=== PATIENT | male | born 1965 | race Caucasian/White ===

== ENCOUNTER → 2024-06-08 | Outpatient (CLI) | payer OTHER, SELFPAY | END | disposition home or self-care (01) | LOC: LABSPEC 14:45 | PROVIDERS: PCP Internal Medicine; Referring Provider Surgery; Visit Provider Surgery | DX: Z01.818 Encounter for other preprocedural examination (principal); K40.90 Unilateral inguinal hernia, without obstruction or gangrene, not specified as recurrent | CPT/HCPCS: 87081 ==

== ENCOUNTER 2024-09-27 09:10 | Day surgery (SDC) | payer OTHER, SELFPAY ==
--- NOTE | 2024-09-17 07:17 | EKG12_ITS ---
Test Reason : PRE OP Blood Pressure : */* mmHG Vent. Rate : 70 BPM Atrial Rate : 70 BPM P-R Int : 150 ms QRS Dur : 88 ms QT Int : 384 ms P-R-T Axes : 37 16 57 degrees QTcB Int : 414 ms Normal sinus rhythm Normal ECG Confirmed by IRVIN BRANNON, PERICO ([id number]), assistant editor LLUVIA HENSON ([id number]) on 09/17/2024 2:13:02 PM Referred By: Ton Russell Confirmed By: PERICO BRYAN MD
[2024-09-27] VITALS (9 sets, daily range): BP systolic 119–171; BP diastolic 62–90; PULSE 66–85; RESP 16–18; TEMP 36.4–37; O2SAT 92–97; BMI 31.6
--- NOTE | 2024-09-27 | LIP_PTH ---
PATIENT: AUBREE ESCALANTE III LOC: [facility] [place] U#:[id number] AGE/SX: 59/M ROOM: RE09/27/[address]: Dr. Ton Russell MD : 1965 BED: DIS: 09/27/2024 SPEC #: [id number] RECD: 09/27/24 16:34 STATUS: GIOVANNA TORIBIOHeriberto #: [id number] BEKA: 09/27/24 00:[address]: Ton Russell DEPT: SURGICAL PATHOLOGY RECD BY: Griffin Andres ENTERED: 09/28/24 11:02 SP TYPE: LIPOMA OTHR DR: Dr. Martha Middleton, DO Tissues: Soft tissues, NOS Procedures: Surgery Specimen Level III HEADER OPERATION: Laparoscopic robotic inguinal hernia with mesh PRE-OP DIAGNOSIS: Right inguinal hernia TISSUE SUBMITTED: Right inguinal lipoma of cord MICROSCOPIC DIAGNOSIS Right inguinal lipoma of cord, excision: Mature adipose tissue, consistent with lipoma. 10/01/2024 MICROSCOPIC DESCRIPTION Slides are reviewed. GROSS DESCRIPTION Received in fixative is one container labeled with the patient's name and designated Right inguinal lipoma of cord. The specimen consists of an irregular piece of yellow adipose tissue measuring 3.5 x 2.5 x 0.2cm. The entire specimen is submitted in one cassette. 09/28/2024 TC: 1 CPT:40224
[2024-09-27] MEDS: 0.9% Normal Saline (1000mL) 1,000 ML 15 ML IV (10:18)
--- NOTE | 2024-09-27 10:50 | PRE.ANES_ITS ---
ASA Classification* ASA Classification ASA Classification: 2 Assessment & Plan Anesthesia* Anesthesia Assessment Anesthesia Assessment: Discussed sedation and/or anesthesia options, risks, benefits, and alternatives with patient/parents/legal guardian/POA. Questions invited. The patient/parents/legal guardian/POA seems to understand and agrees to proceed with anesthesia plan. Reviewed the physical assessment, medical history, allergy history and patient home medications list prior to surgery/procedure/anesthetic and documented any changes. Performed airway and anesthesia risk assessments. Anesthesia Type Anesthesia Type: General History Source History Obtained from:: Patient and Chart Anesthesia Focused Assessment* Temperature: 98.4 F Pulse Rate: 66 Blood Pressure: 171/88 Respiratory Rate: 18 Pulse Ox: 97 Oxygen Delivery Method: Room Air Airway Assessment Mouth opens: >3 cm Mallampati Score: II Teeth Condition: Caps/Crowns (Front top 6 incisors have veneers.) Neck Range of motion (ROM): Full ROM Focused Labs Anesthesia Preop lab: CBC WBC 8.4 K/mm3 (4.4-11.0) 07/26/16 08:50 RBC 4.75 M/mm3 (4.6-6.2) 07/26/16 08:50 Hgb 14.9 g/dl (13.0-16.5) 07/26/16 08:50 Hct 44.3 % (40-54) 07/26/16 08:50 Plt Count 149 K/mm3 (150-450) L 07/26/16 08:50 CHEMISTRY Potassium 4.4 mmol/L (3.5-5.1) 01/13/16 10:23 Sodium 142 mmol/L (136-145) 01/13/16 10:23 BUN 15 mg/dL (7-18) 01/13/16 10:23 Creatinine 1.02 mg/dL (0.70-1.30) 01/13/16 10:23 Glucose 84 mg/dL (70-110) 01/13/16 10:23 COAG Pre-Assessment Diagnosis/Proposed Procedure Planned Operative Procedure(s): (R) Lap Robotic Inguinal Hernia w/mesh poss bilateral & umbilical hernia repair Anesthesia History Anesthesia History - medical biller/coder: Anesthesia History - medical biller/coder Hx Hospitalization No 09/13/24 10:04 Any Problems With Anesthesia No 09/13/24 10:04 Cholinesterase deficiency No 09/13/24 10:04 You/Your Family Experience No 09/13/24 10:04 fever (hyperthermia) with Relationship Recent Exposure to Contagious No 09/27/24 10:14 Disease Does patient have nerve No 09/13/24 10:04 stimulator Patient instructed to have device shut off --Does patient have Pacemaker No 09/27/24 10:14 or ICD? When Was Last Pacemaker Check QUESTION #4 FULL TEXT: You/Your Family Experience fever (hyperthermia) with Anesthesia Last Oral Intake Last Oral intake: Last Oral Intake NPO since 21:00 09/27/24 10:14 Meds taken in AM with sips of No 09/27/24 10:14 water? Meds patient instructed to take am of surgery PONV PONV - medical biller/coder: PONV - medical biller/coder Female No 09/13/24 10:04 HX of Motion Sickness No 09/13/24 10:04 HX of N/V After Surgery No 09/13/24 10:04 Non-Smoker Yes 09/13/24 10:04 Duration of Surgery greater Yes 09/13/24 10:04 than 60 minutes Number of Risk Factors 2 09/13/24 10:04 PONV Score Moderate Risk 09/13/24 10:04 Height & Weight Height & Weight: Anesthesia: Height & Weight Height 5 ft 10 in 09/27/24 10:14 Weight: 100.2 kg 09/27/24 10:14 Body Mass Index (BMI) 31.6 09/27/24 10:14 Respiratory Assessment Respiratory Assessment - medical biller/coder: Respiratory Tract Infection Hx - medical biller/coder Hx Respiratory Tract Infection No 09/13/24 10:04 STOP Sleep Apnea STOP Sleep Apnea - medical biller/coder: STOP Sleep Apnea - medical biller/coder Hx Hypertension Yes: controlled with med 09/13/24 10:04 Hx Sleep Apnea No 09/13/24 10:04 CPAP BIPAP Do you snore loudly (louder No 09/13/24 10:04 than talking or can be heard Do you often feel tired/ No 09/13/24 10:04 fatigued/ sleepy during daytime? Has anyone observed you stop No 09/13/24 10:04 breathing during sleep? STOP Results Negative 09/13/24 10:04 QUESTION #5 FULL TEXT : Do you snore loudly (louder than talking or can be heard through closed doors)? Tobacco Use History Tobacco Use History - medical biller/coder: Tobacco Use History - medical biller/coder Tobacco Use Smoking Status Never smoker 09/13/24 10:04 Hx Tobacco Use No 09/13/24 10:04 Years Smoking Packs Smoked per Day Smoking Cessation Date was within the last 15 years Hx Smoking Cessation Date Hx Smoking Cessation Counseling Hematologic Medial History Hematologic Hx - medical biller/coder: Hematologic Medical Hx - manager mail Hx of Blood Transfusion Yes 09/13/24 10:04 Hx of Transfusion in last 3 No 09/13/24 10:04 Months Date of Last Transfusion (if within last 3 months) Ever experience any problems No 09/13/24 10:04 with transfusion(s)? Specify any problems Hx of Preganancy in last 3 N/A 09/13/24 10:04 Months Nurse Filling Out Transfusion NBUCHER 09/13/24 10:04 & Questions: Date: 09/13/24 09/13/24 10:04 Time: 10:05 09/13/24 10:04 Patient unable to answer at this time (ie. confused, unrespo /Reproduction History /Reproductive History - medical biller/coder: /Reproductive Hx- medical biller/coder Hx Now No 09/13/24 10:04 Gestational Age (in weeks): EDC: Hx Hx Para Hx Section SAB No 09/13/24 10:04 Active Medications Active Medications: Current Medications Generic Name Dose Route Start Last Admin Trade Name Freq PRN Reason Stop Dose Admin Cefazolin Sodium 2 gm/ N/A 20 mls @ 400 mls/hr 09/27/24 11:00 IV 09/27/24 11:02 PREOP ONE Sodium Chloride 1,000 mls @ 15 mls/hr 09/27/24 09:20 09/27/24 10:18 IV 10/02/24 22:39 15 mls/hr .Q48H ARTIE Administration Protocol PFS Medical History (Updated 09/13/24 @ 10:11 by Anel Navarro) Loss of hearing Depression Alcohol use Anemia Non-smoker HTN (hypertension) Heart murmur Right inguinal hernia Home Medications ?Medication ?Instructions ?Recorded ?Last Taken ?Type amlodipine 5 mg tablet 5 mg PO QDAY 06/08/24 Unknown History escitalopram oxalate 10 mg tablet 10 mg PO QHS 06/08/24 Unknown History lisinopril 20 mg tablet 20 mg PO BID 06/08/24 Unknown History tadalafil 20 mg tablet 20 mg PO DAILY PRN sexual activity 06/08/24 Unknown History fluticasone propionate 50 1 spray intranasal DAILY PRN 09/13/24 Unknown History mcg/actuation nasal allergy symptoms spray,suspension (24 Hour Allergy Relief) Allergy/AdvReac Type Severity Reaction Status Date / Time No Known Allergies Allergy Verified 09/27/24 10:13 Surgical History (Updated 09/13/24 @ 10:11 by Anel Navarro) History of hemorrhoidectomy (~2015) Hx of tonsillectomy Social History (Updated 06/08/24 @ 13:24 by Conchis Ireland LPN) Smoking Status: Never smoker alcohol intake: never substance use type: does not use Review of Systems (Anesthesia) ROS Narrative System reviewed and no additional complaints, except as documented.
--- NOTE | 2024-09-27 10:58 | HP.PCM_ITS ---
History and Physical Date of Admission: 09/27/24 Date of Service: 06/08/24 MR#: [id number] Acct: [id number] Name: AUBREE ESCALANTE Rep #: [id number] : 1965 Provider: Dr. Ton Russell MD Age/Sex: 58/M Location: [facility] Status: Signed Intake Vital Signs 01/14/1608:59 06/08/2413:24 Height 5 ft 10 in 5 ft 10 in Weight: 212 lb BMI 30.4 BP 149/83 H Blood Pressure Location Lt brachial Position Sitting Respiration 18 Pulse 68 Pulse Source Monitor Temp 97.5 F L Temp Source Temporal Pulse Oximetry (%) 99 Oxygen Delivery Method room air Intake Visit Reasons: INGUINAL HERNIA Chief Complaint: inguinal hernia Is patient in pain?: No Allergies No Known Allergies Allergy (Verified 06/08/24 13:25) Medications ?Medication ?Instructions ?Recorded ?Confirmed ?Type amlodipine 5 mg tablet 5 mg PO QDAY 06/08/24 06/08/24 History escitalopram oxalate 10 mg tablet 10 mg PO QDAY 06/08/24 06/08/24 History lisinopril 20 mg tablet 20 mg PO BID 06/08/24 06/08/24 History tadalafil 20 mg tablet 20 mg PO 06/08/24 06/08/24 History PFSH Medical History (Updated 06/09/24 @ 09:[address] Ton Russell MD) HTN (hypertension) Heart murmur Right inguinal hernia Surgical History (Updated 06/08/24 @ 13:30 by Conchis Ireland LPN) Hx of tonsillectomy Social History (Updated 06/08/24 @ 13:24 by Conchis Ireland LPN) Smoking Status: Never smoker alcohol intake: never substance use type: does not use HPI HPI HPI: Patient is a 58-year-old male who presents for complaint of a new probable inguinal hernia. This finding was first noticed by patient a couple of months ago. He shares that he tripped at work and led with his right leg as he tried to catch himself. Following this incident experienced a lot of pressure and some swelling of his right groin. He notes that this area seems swollen during the day but then better at night. 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 He denies any pain but does describe a dull ache occasionally. He denies any change in his bowel function. Outside of work he shares that he has done some staining but he has used his son for moving any heavier objects. Dr. Aguillon shares a history of a cardiac murmur that was diagnosed at 18 months of age after a febrile illness. He reports that it was last evaluated in 2018 because there is some question about whether or not he should have had surgery prior, but he reports that it was ultimately concluded that no surgery would be required. He denies any recent shortness of breath or decrease in his stamina. He does also report today that his medications are being slowly adjusted for history of hypertension. Dr. Aguillon initially lists a history of a bowel surgery, but after review of his records clarifies this to state that he underwent a hemorrhoidectomy and a history of anemia is now resolved along with a history of abnormal bowel habits. Patient has no personal history of smoking. Patient has no personal history of recurrent cutaneous infections including staph. ROS General General: No weight change, appetite, fatigue, colon cancer, breast cancer or weakness HEENT HEENT: No difficulty swallowing, eye injury, eye surgery, swollen glands or hoarseness Endo Endocrine: No thyroid disease, diabetes mellitus, thyroid cancer, Hair loss, heat intolerance or cold intolerance Skin Skin: No rash or changing moles Musc Musculoskeletal: No back problems, arthritis, rheumatoid arthritis, gout or joint pain Cardio Cardiovascular: Yes murmur; No pacemaker, heart disease, atrial fibrillation, high blood pressure, heart attack, heart stent, palpitations, shortness of breat with exertion or chest pain Psych Psychiatric: Yes depression and anxiety; No hearing voices Resp Respiratory: No shortness of breath, No sleep apnea, No cough, No COPD, No asthma, No emphysema and No wheezing Gastro Gastrointestinal: No abdominal pain, No nausea or vomiting, No diarrhea, No constipation, No blood in stool, No acid reflux, No hemorrhoids, No ulcers, No gallbladder problem and No black,tarry stools Adrian Hematologic: No blood thinners, No blood disorders, No bleeding, No anemia and No blood clots Neuro Neurologic: No numbness, No tingling and No weakness Exam Const General: cooperative and healthy appearing Nutritional Appearance: overweight Orientation: alert and awake Resp Effort & Inspection: normal respiratory effort GI Other: Umbilical hernia that is tender upon palpation but appears chronically incarcerated with a small tuft fat. Because it is chronically incarcerated I am unable to fully reduce this and yet I would estimate the fascial defect to be 1.5 cm. Other: Bilaterally descended testicles with bulge on the right. Mild tenderness upon palpation where identify probable right indirect type inguinal hernia that is reducible. No defect appreciated on the left. Assessment and Plan Assessment and Plan (1) Right inguinal hernia: Status: Acute Comment: Patient is a 58-year-old male, largely otherwise healthy, with minimally symptomatic right inguinal hernia. He describes first noticing this hernia a little over a month ago. While his history was suggestive for a hernia his exam is confirmatory. There is a significant bulge of the right side and it appears to be originating from a lateral perspective raising the likelihood this represents a indirect?type inguinal hernia. I shared with Dr. Escalante that while there should be a low risk for any emergencies at this finding I would recommend repair sooner than later based on its size. Dr. Escalante and returns shares that he has a pretty significant commitment at work as his office is changing physical locations and will need to delay scheduling until the first part of September. Procedure details as well as post procedure recovery expectations were relayed. Specifically, Dr. Aguillon is advised that a weight lifting restriction of 10 pounds would be imposed for the immediate 5 weeks post procedure. He pledges to try to stick to this as closely as possible. Lastly we will obtain a swab of his nares to screen for staph that may need to be treated prior to his procedure. Plan: ? Plan for robot-assisted transabdominal preperitoneal mesh repair of right inguinal hernia early September ? Follow-up nasal swab for evidence of staff aureus (2) Umbilical hernia: Status: Acute Comment: Incidentally noted umbilical hernia that appears to be chronically incarcerated with fat. Patient has tenderness over this area on exam and it is not fully reducible. I have offered ongoing observation or to perform a primary repair at the time of his surgery for his right inguinal hernia. Dr. Aguillon elects the latter so we will add this to his procedure. I did share that if our port placement allows this could be done from a transabdominal vantage point, robotically, but otherwise would require a separate incision. Plan: ? Plan for primary (suture) repair of small umbilical hernia concurrent with repair of right inguinal hernia Orders: Orders MRSA/SAID SCREEN (PRE SURG) 06/08/24 K40.90 - Unilateral inguinal hernia, without obstruction or gangrene, not specified as recurrent, Z01.818 - Encounter for other preprocedural examination I have examined the patient and the H&P has been reviewed. There are no clinical changes since date of exam. Patient confirms that he has remained in a stable state of health and was able to arrange things at work continue move forward with surgery today. A brief overview of both the procedure and post procedure recovery expectations was given since it has been short while since his consultation visit. All questions were answered from the him and his spouse. We will plan to proceed for robot-assisted right inguinal hernia (possible bilateral inguinal hernia repair with mesh placement. Additionally we will move forward with plans to perform a primary repair of patient's umbilical hernia. Consents were confirmed.
[2024-09-27] MEDS: Cefazolin 2 GM in Syringe IV (11:13)
[2024-09-27] MEDS: Bupiv/Epi 0.25% 30 ML Vial (14:14)
--- NOTE | 2024-09-27 14:36 | OP.PCM_ITS ---
Operative Report (Standard) Operative Information Date of Procedure: 09/27/24 Pre-Operative Diagnosis: 1. Right inguinal hernia 2. Umbilical hernia Post-Operative Diagnosis: 1. Sliding-type right inguinal hernia containing a substantial amount ileum 2. Fat incarcerated umbilical hernia Surgery/Procedure Performed: 1. Robot-assisted transabdominal preperitoneal hernia repair with mesh 2. Primary umbilical hernia repair floor waxer: Yes Kiln Operator Helper: Krystyna Garcia Tasks completed by assistant boys track coach: Opening & closing, Insert Trochanter and Retracting Additional program support assistant?: Yes Additional Truck Driving Instructor #2: Niesha Dalton Tasks completed by program support assistant #2: Opening & closing Type of Anesthesia: General/Supplemental RN Documented Start/Stop Times: Operation Date: 09/27/24 11:00 Case Time Into Pre-Op 09/27/24 09:19 Into Room 09/27/24 11:13 Anesthesia Start 09/27/24 11:40 Procedure Start 09/27/24 11:41 Procedure End 09/27/24 14:33 Anesthesia End 09/27/24 14:40 Out of Room 09/27/24 14:40 Into Recovery 09/27/24 14:42 Out of Recovery 09/27/24 15:14 Into Phase II Recovery 09/27/24 15:15 Procedure Start Time: 11:41 Procedure Stop Time: 14:33 Select all DRAINS/GRAFTS/IMPLANTS that apply: Implanted device (3D max mid anatomic mesh (extra-large)) Implanted device details: Lot [id number], reference [id number] Estimated Blood Loss: 10 Specimen collected: Yes Description of specimen(s) removed: Right cord lipoma Description of surgery: After appropriate identification in the preoperative holding area the patient was brought to the operating room where he was positioned supine on the operating table. Preoperative antibiotics were completed and the patient was administered a general anesthetic. Patient's abdomen was then prepped and draped in usual sterile fashion. Formal timeout followed to confirm patient and procedure. Procedure was begun with an optical entry facilitated by Veress insufflation at Anderson's point. Once pneumoperitoneum reached a set point pressure of 15 mmHg the Veress needle was withdrawn and an optical entry was made with a robotic trocar through that incision site. Laparoscopic visualization confirmed no inadvertent injury to the viscera below and 2 additional ports were placed in the right upper quadrant and paramedian positions, respectively, after instillation of local anesthetic. Patient was positioned in slight Trendelenburg and I performed a local block of the right ilioinguinal nerve using 4 mL local anesthetic under laparoscopic visualization. The robot was docked in standard fashion. In this positioning I could visualize a large indirect abdominal wall defect with bowel twisting and descending down into this defect. Traction was applied to the bowel but I found that adherent to the hernia sac so I resolved to leave it in place for now. The left side was inspected and although there were some and adhesions between the sigmoid colon and the sidewall I did not visualize any hernia defects. Robotically, a peritoneal flap was created on the right extending from the medial umbilical ligament to the level of the ASIS (external) and was bluntly di ssected to expose the medial parietal compartment and lateral visceral compartments. Medially I could visualize the pubic tubercle and Kb's ligament while laterally I extended the dissection down to the level of the ASIS. The hernia sac was identified and from the cord structures deeply with selective use of monopolar energy. Great care was taken until I could confirm that the small bowel was free of the hernia sac. A small cord lipoma was identified and removed with monopolar energy. Beyond this, I did not visualize a direct, femoral or obturator defect. The peritoneal flap was inspected to ensure that cord was appropriately parietalized and there was no pulling of the cord structures or the viscera deeply over the psoas using the pull test. Once satisfied, a Bard 3D max, size extra-large, mid weight mesh was placed into the abdomen along with suture. It was positioned within the preperitoneal pocket so that there was good medial and inferior overlap. It was then tacked to the admuniculum of the linea alba just superior to the pubic tubercle and laterally in a partial-thickness bite of the abdominal wall using a 3-0 Vicryl suture. The peritoneal flap was then closed with a running 3-0 V-Loc suture taking care to conceal the barbs of the suture beneath the peritoneum. Once the flap closure was complete, I undertook repair of peritoneal defects with 3-0 Vicryl. With the peritoneal defects closed, sutures were systematically removed from the peritoneum and the pneumoperitoneum was evacuated before removing the trocars. The robot was undocked and attention was turned to repair of the umbilical hernia. I elected to use a infraumbilical location for incision and performed a local block along this tissue using quarter percent Marcaine. A curvilinear incision was made sharply and deepened down through the dermis and subcu tissue with use of electrocautery. I used a hemostat to bluntly dissect out and encircled the umbilical stalk and took care to avoid injury to the overlying skin. Gradually this was freed from the underlying scar and soft tissue attachments until we were able to visualize patient's fascial defect. This measured approximately 1.5 cm round. At this smaller size I did not feel the hernia required mesh for repair so I elected to close it primarily. The fascial defect was closed with #2 Ethibond sutures in an interrupted fashion using a [id number] technique. This resulted in a nice closure of the fascial defects with a mesh underlay. The skin of the umbilical stalk was tacked down to the fascia with a interrupted 3-0 Vicryl. The same 3-0 Vicryl was used to perform a number of interrupted sutures along the deeper dermis to reapproximate the wound and close down some of the space from our dissection down to the fascia. Lastly, a 4-0 Monocryl was used to close the skin in a running subcuticular technique. At the same time the port sites were closed at the skin with running 4-0 Monocryl in a subcuticular fashion. Steri's were applied and a rolled Telfa was placed into the umbilical concavity. A OpSite dressing was placed atop this and the area around the Telfa roll was evacuated to provide a bit of a compressive dressing. Steri-Strips and OpSite's were used as dressings for the 3 port sites. Patient was then awoken from anesthetic and transferred to PACU for ongoing recovery. Surgical Findings: ? Sliding-type right inguinal hernia with small bowel contents ? 1.5 cm fat incarcerated umbilical hernia Complications Complications: No Admit VTE Documentation VTE Mechan Device Prophylaxis: SCD's
--- NOTE | 2024-09-27 14:39 | EX.PCM.DISCH ---
Discharge Instructions Diet Discharge Diet: No restrictions Activity Discharge Activity: May Not Drive (While taking narcotic pain medication) and May Shower May shower in (days): 2 Ice area for (Minutes): 20 Lifting Restrictions: No lifting greater than 10 pounds for the next 5 weeks Dressing / Incision Call your doctor if your incision/area has: Continuous Slow Oozing, Increased Pain/ Swelling, Increased Redness, Foul Smelling Discharge and Swelling at the incision site Call your doctor if you observe: Fever of 101 or Higher, Inability to urinate and Inability to have a bowel movement Change Dressing in: 2 days (Please leave Steri-Strips intact until they fall off spontaneously or are taken off at your follow-up visit) Remove Dressing in: 2 days Cleanse incision/area with: Soap & Water and Keep Dressing Clean & Dry Additional Dressing/Incision Instructions:: Please maintain umbilical dressing for 5 days postop Follow Up Care Please Follow Up With: Ton Russell MD When: 10 to 14 days postop Test Results: Test results from this visit will be discussed in further detail at your follow-up appointment, if applicable. Discharge Plan Admission Primary Reason for Your Visit: Hernia repair Attending Provider: Ton Russell Primary Care Provider: Martha Middleton Instructions Print Language: Guatemalan Discharge Orders/Prescriptions Prescriptions: New oxycodone 5 mg tablet 5 mg PO Q6H PRN (Reason: pain) 3 Days Qty: 10 0RF Continued escitalopram oxalate 10 mg tablet 10 mg PO QHS lisinopril 20 mg tablet 20 mg PO BID amlodipine 5 mg tablet 5 mg PO QDAY tadalafil 20 mg tablet 20 mg PO DAILY PRN (Reason: sexual activity) fluticasone propionate [24 Hour Allergy Relief] 50 mcg/actuation spray,suspension 1 spray intranasal DAILY PRN (Reason: allergy symptoms) Rx Instructions: administer into each nostril Other Ambulatory Orders: 12 Lead EKG (Routine) Location: None Selected Ordered By: Dr. Vin Sims Referrals / Follow Up: Martha Middleton DO [Primary Care Provider] - Disposition Disposition (needs filled in before D/C Order can be placed): Home, Self Care
--- NOTE | 2024-09-27 14:44 | PCM.POST.ANE ---
Anesthesia: Postop Eval I Current Vital Signs Temperature: 98.6 F Pulse Rate: 80 Blood Pressure: 134/80 Respiratory Rate: 18 Pulse Ox: 93 Assessment Airway patent: Yes Spontaneous unlabored respirations: Yes nausea: No Vomiting: No Anesthesia Complication: No Fluid Hydration Crystalloid volume administer (ml): 1,600 Total IV fluid infused: 1,600 Progress Note Anesthesia document: Postop Eval 1 completed: Yes
[2024-09-27] MEDS: oxyCODONE 5 MG Tablet PO (15:32)
--- NOTE | 2024-09-28 07:59 | POSTOPAN2_ITS ---
Anesthesia Postop Eval I Sum Postop Eval Completion status Anesthesia document: Postop Eval 1 completed: Yes Anesthesia Postop Eval I Summary Anesthesia Postop Eval I Summary: Anesthesia Postop Eval I: Assessment Summary Airway patent Yes 09/27/24 14:44 [email or web address] Spontaneous unlabored Yes 09/27/24 14:44 BARIATRIC COORDINATOR.[email or web address] respirations Mental status nausea No 09/27/24 14:44 BARIATRIC COORDINATOR.[email or web address] Vomiting No 09/27/24 14:44 BARIATRIC COORDINATOR.[email or web address] Anesthesia Postop Eval I: Fluid Summary Crystalloid volume administer 1,600 09/27/24 14:44 BARIATRIC [email or web address].[email or web address] (ml) Colloids volume administered ( ml) Blood Product volume administered (ml) Total IV fluid infused 1,600 09/27/24 14:44 BARIATRIC COORDINATOR.CSIR Anesthesia Postop Eval I: Summary Notes Anesthesia Complication No 09/27/24 14:44 BARIATRIC COORDINATOR.CSIR Anesthesia Complication Comment: Post-operative progress note Anesthesia: Postop Eval II Evaluation Mental status: Awake Pain Level: 0 nausea: No Vomiting: No
--- NOTE | 2024-09-28 07:59 | PCM.POSTANE2 ---
Anesthesia Postop Eval I Sum Postop Eval Completion status Anesthesia document: Postop Eval 1 completed: Yes Anesthesia Postop Eval I Summary Anesthesia Postop Eval I Summary: Anesthesia Postop Eval I: Assessment Summary Airway patent Yes 09/27/24 14:44 GOVERNMENT DOCUMENTS [email or web address] Spontaneous unlabored Yes 09/27/24 14:44 GOVERNMENT DOCUMENTS [email or web address].CSIR respirations Mental status nausea No 09/27/24 14:44 GOVERNMENT DOCUMENTS [email or web address].CSIR Vomiting No 09/27/24 14:44 GOVERNMENT DOCUMENTS [email or web address].[email or web address] Anesthesia Postop Eval I: Fluid Summary Crystalloid volume administer 1,600 09/27/24 14:44 GOVERNMENT DOCUMENTS [email or web address].CSIR (ml) Colloids volume administered ( ml) Blood Product volume administered (ml) Total IV fluid infused 1,600 09/27/24 14:44 GOVERNMENT DOCUMENTS [email or web address].CSIR Anesthesia Postop Eval I: Summary Notes Anesthesia Complication No 09/27/24 14:44 GOVERNMENT DOCUMENTS [email or web address].CSIR Anesthesia Complication Comment: Post-operative progress note Anesthesia: Postop Eval II Evaluation Mental status: Awake Pain Level: 0 nausea: No Vomiting: No
== END 2024-09-27 16:17 | disposition home or self-care (01) ==
LOC: SDC 09:16 → AC 09:17
PROVIDERS: PCP Internal Medicine; Referring Provider Surgery; Visit Provider Surgery
PROC: (CPT 49650; principal; 2024-09-27 10:40)
DX: K40.90 Unilateral inguinal hernia, without obstruction or gangrene, not specified as recurrent (principal); K42.0 Umbilical hernia with obstruction, without gangrene; I10 Essential (primary) hypertension; D17.5 Benign lipomatous neoplasm of intra-abdominal organs
CPT/HCPCS: 49650; 49592; S2900; 00840; 88304; 93005; C9290; J2405

== ENCOUNTER → 2025-06-14 | Outpatient (CLI) | payer OTHER, SELFPAY ==
[2025-06-14 16:40] LABS: Mucous, Urine 0 SEEN /hpf (<or=2+); Red Blood Cells-Urine 0 SEEN /hpf (0-5); Squamous Epithelial Cells - UA 0 SEEN /hpf (0-5)
[2025-06-14 18:29] LABS: Color, Urine Yellow (Yellow); Glucose, Dipstick Normal (Normal); Ketone-Dipstick Negative (Negative); Leukocyte Esterase-Dipstick Negative /ul (Negative); Nitrite-Dipstick Negative (Negative); Occult Blood-Urine Negative /ul (Negative); Protein-Dipstick 15 mg/dl (Negative); Specific Gravity, Urine 1.020 (1.002-1.030); Urine Bilirubin Dipstick Negative (Negative)
[2025-06-14 18:33] LABS: Hematocrit 47.8 % (40-54); Hemoglobin 16.5 g/dL (13.0-16.5); Immature Granulocytes Count 0.060 X10^3/uL (0.0-0.0); Mean Corp Hgb Conc 34.5 g/dL (32-36); Mean Corpuscular Volume 89.8 fL (80-94); Mean Platelet Vol. 11.7 fl (6.2-12.0); NRBC Flagged by Analyzer 0 % (0-5); Platelet Count 209 K/mm3 (150-450); RBC Distribution Width CV 12.6 % (11.6-14.6); RBC Distribution Width SD 41.4 fl (35.1-43.9); Red Blood Count 5.32 M/mm3 (4.6-6.2); White Blood Count 10.3 K/mm3 (4.4-11.0)
[2025-06-14 18:52] LABS: AST(SGOT) 26 U/L (<=37); Alanine Aminotransfer ALT/SGPT 24 U/L (<=46); Albumin, Serum 4.6 g/dL (3.5-5.0); Alkaline Phosphatase 82 U/L (40-129); Anion Gap 11 (5-15); BUN 15 mg/dL (4-19); BUN/Creat Ratio 13.7 RATIO (10-20); CRP 3.10 mg/L (0.0-3.0); Calcium,Total 9.9 mg/dL (7.6-11.0); Carbon Dioxide 25.1 mmol/L (21.0-32.0); Chloride 103 mmol/L (98-108); Cholesterol 206 mg/dL (<=200); Globulin 2.9 g/dL (2.2-4.2); Glucose 88 mg/dL (70-99); Low Density Lipoprotein Calc. 124 mg/dL; Potassium 4.1 mmol/L (3.3-5.1); Triglycerides 209 mg/dL; Very Low Density Lipoprotein 42 mg/dL (5-40); Vitamin B12 1033 pg/mL (180-914); Vitamin D,25 Hydroxy 48.1 ng/mL (30-100); cholesterol:hdl ratio screen 5.10
[2025-06-14 19:03] LABS: Creatinine, Urine (random) 186.00 mg/dL (39.00-259.00); Microalbumin,Random Urine < 12.0 mg/L (<20 mg/L)
[2025-06-17 15:08] LABS: ANTINUCLEAR ANTIBODIES DIRECT Positive (Negative)
[2025-06-19 12:08] LABS: PSA, Total 1.7 ng/mL (0.0-4.0); Testosterone, % Free 2.05 % (1.50-4.20); Testosterone, Free 8.63 ng/dL (5.00-21.00)
== END | disposition home or self-care (01) ==
LOC: MTLAB 16:35
PROVIDERS: PCP Internal Medicine; Referring Provider Internal Medicine; Visit Provider Internal Medicine
DX: Z12.5 Encounter for screening for malignant neoplasm of prostate (principal); I10 Essential (primary) hypertension; E78.5 Hyperlipidemia, unspecified; E29.1 Testicular hypofunction; R53.83 Other fatigue; R35.89 Other polyuria
CPT/HCPCS: 36415; 80053; 80061; 81001; 82043; 82306; 82570; 82607; 83036; 84153; 84402; 84403; 84443; 85025; 85652; 86038; 86140